=== PATIENT | male | born 1935 | race Caucasian/White ===

== ENCOUNTER 2021-07-16 18:46 | Emergency (ER) | payer MEDICARE, SELFPAY ==
[2021-07-16 18:47] VITALS: BP 142/63; PULSE 75; RESP 20; TEMP 36.7; O2SAT 93
--- NOTE | 2021-07-16 19:57 | ED.GENADULT ---
HPI - General Adult General Chief complaint: Unspecified Stated complaint: suprapubic cath leaking Time Seen by Provider: 07/16/21 19:26 History of Present Illness HPI narrative: Patient is a 86-year-old gentleman who presents the emergency department with chief complaint of leaking around suprapubic catheter. Patient reports that for some time he has been having some problem with leakage around his catheter he saw his urologist yesterday in the office and they changed his catheter out patient reports he has continued to have urine draining around the catheter and it is starting to annoy him. Patient called his urologist today and his nurse suggested that they come to the emergency department for evaluation Related Data Allergies Allergy/AdvReac Type Severity Reaction Status Date / Time No Known Allergies Allergy Unverified 10/31/18 07:26 Review of Systems Review of Systems: A 10 system review of systems was completed on the patient and is negative except for what is stated in the HPI. Nursing and ancillary documentation was reviewed. Exam Narrative: GENERAL: Well-appearing, well-nourished, and in no acute distress. HEAD: Normocephalic, atraumatic. EYES: PERRLA and EOMI. ENT: Nares clear, no rhinorrhea or epistaxis. Mucous membranes moist. NECK: Supple. CHEST: Clear to auscultation. No respiratory distress. HEART: Regular rate and rhythm. No murmur heard. Normal peripheral pulses. ABDOMEN: Soft, nontender, nondistended, normal active bowel sounds. There is a suprapubic catheter present there is urine leaking around the catheter EXTREMITIES: Normal range of motion. No edema. SKIN: Warm, dry, no rash. NEURO: No focal deficits. Alert and oriented x3. PSYCH: Normal mood and affect. Course Course Emergency Course: Patient's original 20 Arabic Cleaning catheter had a 10 mL balloon and using an empty syringe the balloon was emptied there was verified that it had 10 mL of saline and. The catheter was repositioned reinflated there was still leakage around the site even though the patient did drain approximately 150 mL of urine out after repositioning. At this time the decision was made to replace the Cleaning catheter with a larger size and larger balloon catheter a 22 Arabic catheter with a 30 mill balloon was inserted into the tract inflated and currently there is no active leakage of urine. Vital Signs Vital signs: Vital Signs Temperature 36.7 C 07/16/21 18:47 Pulse Rate 75 07/16/21 18:47 Respiratory Rate 20 07/16/21 18:47 Blood Pressure 142/63 H 07/16/21 18:47 Pulse Oximetry 93 07/16/21 18:47 Temperature 36.7 C 07/16/21 18:47 Pulse Rate 87 07/16/21 20:43 Respiratory Rate 17 07/16/21 20:43 Blood Pressure 144/90 H 07/16/21 20:43 Pulse Oximetry 98 07/16/21 20:43 Medical Decision Making Vital Signs Vital Signs: Vital Signs Temperature 36.7 C 07/16/21 18:47 Pulse Rate 75 07/16/21 18:47 Respiratory Rate 20 07/16/21 18:47 Blood Pressure 142/63 H 07/16/21 18:47 Pulse Oximetry 93 07/16/21 18:47 Temperature 36.7 C 07/16/21 18:47 Pulse Rate 87 07/16/21 20:43 Respiratory Rate 17 07/16/21 20:43 Blood Pressure 144/90 H 07/16/21 20:43 Pulse Oximetry 98 07/16/21 20:43 Discharge Plan Discharge Clinical Impression: Suprapubic catheter dysfunction Qualifiers: Encounter type: initial encounter Qualified Code(s): T83.010A - Breakdown (mechanical) of cystostomy catheter, initial encounter Patient Disposition: Home, Self-Care Condition: Stable Instructions: Antibiotic Form, How to Care for Your Suprapubic Catheter (DC) Follow-up/Referrals: PHYSICIAN NOT ON STAFF,NONSTAFF [Non-Staff] - Jimmy Urias MD [Physician] - Time of Disposition: 20:48
--- NOTE | 2021-07-16 19:58 | PC.NURSE ---
NEW CATHETER PLACED BY DR LAUGHLIN, 22FR ATTACHED TO DRAINAGE LEG BAG. PT TOLERATED WELL
[2021-07-16 20:43] VITALS: BP 144/90; PULSE 87; RESP 17; O2SAT 98
== END 2021-07-16 20:44 | disposition home or self-care (01) ==
PROVIDERS: Emergency Provider Emergency Medicine; PCP Family Medicine
DX: T83.010A Breakdown (mechanical) of cystostomy catheter, initial encounter (principal)
CPT/HCPCS: 51702; 51705; 99283